=== PATIENT | female | born 1950 | race Caucasian/White ===

== ENCOUNTER → 2025-06-09 05:00 | Outpatient (REF) | payer MEDICARE, SELFPAY ==
[2025-06-09 07:29] LABS: Anion Gap 9 (5-15); BUN 11 mg/dL (4-19); BUN/Creat Ratio 5.0 RATIO (10-20); Calcium,Total 8.0 mg/dL (7.6-11.0); Carbon Dioxide 25.7 mmol/L (21.0-32.0); Chloride 99 mmol/L (98-108); Glucose 77 mg/dL (70-99); Potassium 4.2 mmol/L (3.3-5.1)
== END ==
LOC: OLS.SANC 05:00
PROVIDERS: Visit Provider Internal Medicine
DX: E03.9 Hypothyroidism, unspecified (principal); E86.1 Hypovolemia
CPT/HCPCS: 36415; 80048